=== PATIENT | male | born 1975 | race Caucasian/White ===

== ENCOUNTER 2021-05-04 18:58 | Emergency (ER) | payer MEDICAID ==
[2021-05-04 19:22] VITALS: BP 156/78; PULSE 97
[2021-05-04] MEDS ORDERED: Ketorolac 30 MG/ML SDV IM ONE (19:33)
[2021-05-04] MEDS ORDERED: Acetaminophen/HYDROcodone 325-10 MG Tab PO ONE (19:34)
[2021-05-04] MEDS ORDERED: Baclofen 10 MG Tab PO ONE (19:37)
--- NOTE | 2021-05-04 19:42 | EDM.PDOC ---
ED HPI GENERAL MEDICAL PROBLEM - General Chief Complaint: Lower Extremity Injury/Pain Stated Complaint: NECK AND BACK PAIN Time Seen by Provider: 05/04/21 19:37 Source of Information: Reports: Patient History Limitations: Reports: No Limitations - History of Present Illness INITIAL COMMENTS - FREE TEXT/NARRATIVE: pt arrived with increased pain in the lower back. He works at [employer] and he lifted something today which was too heavy and now he is having severe pain going down his legs. He did put in his notice today. 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 Onset: Today, Other ( occurred after lifting. ) Duration: Hour(s): Location: Reports: Back, Radiates to (both legs worse on the left. ) Associated Symptoms: Reports: Other (pt states he has pain every day but it is much worse today. ) Bilateral Lower Leg Pain Score (Numeric/FACES): 7 - Related Data Allergies Allergy/AdvReac Type Severity Reaction Status Date / Time No Known Allergies Allergy Verified 05/04/21 19:16 Home Meds: Home Meds ClonazePAM [KlonoPIN] 0.5 mg PO BID 05/04/21 [History] Mirtazapine [Remeron] 15 mg PO BID 05/04/21 [History] hydroCHLOROthiazide [Hydrochlorothiazide] 25 mg PO DAILY 05/04/21 [History] lisinopriL [Lisinopril] 20 mg PO DAILY 05/04/21 [History] Past Medical History Gastrointestinal History: Reports: Gastritis Genitourinary History: Reports: Other (See Below) Other Genitourinary History: Enlarged prostate Musculoskeletal History: Reports: Back Pain, Chronic, Other (See Below) Other Musculoskeletal History: hip pain Psychiatric History: Reports: Anxiety, Depression Dermatologic History: Reports: Psoriasis - Past Surgical History Musculoskeletal Surgical History: Reports: Other (See Below) Other Musculoskeletal Surgeries/Procedures:: Disc 6 and 7 2013 Social & Family History - Tobacco Use Tobacco Use Status *Q: Current Every Day Tobacco User Years of Tobacco use: 30 Packs/Tins Daily: 0.5 - Caffeine Use Caffeine Use: Reports: Coffee, Tea - Recreational Drug Use Recreational Drug Use: No Review of Systems - Review of Systems Review Of Systems: See Below Eyes: Reports: No Symptoms Ears: Reports: No Symptoms Nose: Reports: No Symptoms Mouth/Throat: Reports: No Symptoms Respiratory: Reports: No Symptoms Cardiovascular: Reports: No Symptoms Musculoskeletal: Reports: Other (pain radiating down both legs. ) ED EXAM, GENERAL - Physical Exam Exam: See Below Free Text/Narrative:: pt arrived with acute low back pain after lifting a heavy object today at work He now has pain going down both legs. Exam Limited By: No Limitations General Appearance: Alert, Anxious, Moderate Distress Ears: Normal TMs Respiratory/Chest: No Respiratory Distress Cardiovascular: Regular Rate, Rhythm GI/Abdominal: Soft, Non-Tender (Male) Exam: Deferred Back Exam: Other (pt is tender over the lower back. He very uncomfortable with straight leg raisinf,. He lives a few blocks from the [facility] and he will be walking home. ) Course - Vital Signs Last Recorded V/S: Last Vital Signs Temp 36.6 C 05/04/21 19:21 Pulse 97 05/04/21 19:21 Resp 18 05/04/21 19:21 BP 156/78 H 05/04/21 19:21 Pulse Ox 97 05/04/21 19:21 - Orders/Labs/Meds Meds: Medications Discontinued Medications Generic Name Dose Route Start Last Admin Trade Name Daq PRN Reason Stop Dose Admin Hydrocodone Bitart/Acetaminophen 1 tab 05/04/21 19:34 05/04/21 19:47 Acetaminophen/Hydrocodone 325-10 Mg Tab PO 05/04/21 19:35 1 tab ONETIME ONE Administration Baclofen 10 mg 05/04/21 19:37 05/04/21 19:47 Baclofen 10 Mg Tab PO 05/04/21 19:38 10 mg ONETIME ONE Administration Ketorolac Tromethamine 60 mg 05/04/21 19:33 05/04/21 19:46 Ketorolac 30 Mg/Ml Sdv IM 05/04/21 19:34 60 mg ONETIME ONE Administration - Re-Assessments/Exams Free Text/Narrative Re-Assessment/Exam: 05/04/21 19:43 pt was given torodol 60mg and norco 10/325 pluis bsclofen 10 mg. 05/04/21 20:11 pt did get some relief with the pain meds. Departure - Departure Time of Disposition: 20:12 Disposition: Home, Self-Care 01 Condition: Fair Clinical Impression: Lumbar disc disease - Discharge Information Referrals: Clinton Licea MD [Primary Care Provider] - Forms: ED Department Discharge Care Plan Goals: ice or heat to the low back, baclofen 10 ng bid for muscle spasm, [place] 5/325 q6h prn for pain #12. avoid lifting more than 8-10 lbs, Pt should not work for the next 2 days, Sepsis Event Note (ED) - Evaluation Sepsis Screening Result: No Definite Risk - Focused Exam Vital Signs: Vital Signs Temp Pulse Resp BP Pulse Ox 05/04/21 19:21 36.6 C 97 18 156/78 H 97
== END 2021-05-04 20:24 | disposition home or self-care (01) ==
LOC: JP.ED 18:58
DX: M51.9 Unspecified thoracic, thoracolumbar and lumbosacral intervertebral disc disorder (principal); Z79.899 Other long term (current) drug therapy; Z72.0 Tobacco use
CPT/HCPCS: 96372; 99283; A9270; J1885

== ENCOUNTER 2021-05-16 14:17 | Emergency (ER) | payer MEDICAID ==
[2021-05-16 14:21] VITALS: BP 127/77; PULSE 82
[2021-05-16] MEDS ORDERED: Ketorolac 30 MG/ML SDV IM ONE (14:26)
[2021-05-16] MEDS ORDERED: Acetaminophen/HYDROcodone 325-5 MG Tab PO ONE (14:27)
--- NOTE | 2021-05-16 14:52 | EDM.PDOC ---
ED HPI GENERAL MEDICAL PROBLEM - General Chief Complaint: Back Pain or Injury Stated Complaint: MEDICAL VIA NORTH Time Seen by Provider: 05/16/21 14:25 Source of Information: Denies: Patient History Limitations: Reports: Other (incomplete records) - History of Present Illness INITIAL COMMENTS - FREE TEXT/NARRATIVE: 45 yo male presents with increased chronic low back pain. Has pain down both legs, L>R. No bowel or bladder incontinence. Has known disc dz of his low back. His [place] primary care provider is referring him to a back specialist in the [facility]. He is in the early stages of divorce and recently had to quit his job at [employer] due to low back issues. Walked on the ice last night and while he did not fall, he thinks he slipped enough to aggravate his back problem. He took his last Dellroy at home today without relief. Here via EMS. Was started on Cymbalta this last week in the clinic for his pain. Onset: Gradual Onset Date: 05/15/21 (got worse again last night) Duration: Day(s): (<1 day), Getting Worse Location: Reports: Back Quality: Reports: Ache Severity: Severe Improves with: Reports: Rest Worsens with: Reports: Movement Context: Reports: Other (See HPI) Associated Symptoms: Reports: Other (pain down both legs) Treatments [employer]: Reports: Other (see below) (Dellroy x 1) Lower Lumbar Pain Score (Numeric/FACES): 8 - Related Data Allergies Allergy/AdvReac Type Severity Reaction Status Date / Time No Known Allergies Allergy Verified 05/04/21 19:16 Home Meds: Home Meds ClonazePAM [KlonoPIN] 0.5 mg PO BID 05/04/21 [History] hydroCHLOROthiazide [Hydrochlorothiazide] 25 mg PO DAILY 05/04/21 [History] lisinopriL [Lisinopril] 20 mg PO DAILY 05/04/21 [History] Acetaminophen/HYDROcodone [HYDROcodone-Acetaminophen 5-325 MG *] 1 - 2 tab PO Q6H PRN #12 each 05/16/21 [Rx] Acetaminophen/HYDROcodone [HYDROcodone-Acetaminophen 5-325 MG *] 1 tab PO Q6H PRN 05/16/21 [History] Past Medical History Gastrointestinal History: Reports: Gastritis Genitourinary History: Reports: Other (See Below) Other Genitourinary History: Enlarged prostate Musculoskeletal History: Reports: Back Pain, Chronic, Other (See Below) Other Musculoskeletal History: hip pain Psychiatric History: Reports: Anxiety, Depression Dermatologic History: Reports: Psoriasis - Past Surgical History Musculoskeletal Surgical History: Reports: Other (See Below) Other Musculoskeletal Surgeries/Procedures:: Disc 6 and 7 replaced 2013 Social & Family History - Tobacco Use Tobacco Use Status *Q: Never Tobacco User - Caffeine Use Caffeine Use: Reports: Coffee, Soda - Recreational Drug Use Recreational Drug Use: No ED ROS GENERAL - Review of Systems Review Of Systems: See Below Constitutional: Reports: No Symptoms HEENT: Reports: No Symptoms Respiratory: Reports: No Symptoms Cardiovascular: Reports: No Symptoms GI/Abdominal: Reports: No Symptoms Musculoskeletal: Reports: Back Pain Skin: Reports: No Symptoms Neurological: Reports: Other (radiation down legs, L>R) Psychiatric: Reports: Anxiety ED EXAM,LOWER BACK PAIN/INJURY - Physical Exam Exam: See Below Exam Limited By: No Limitations General Appearance: Alert, WD/WN, No Apparent Distress Eye Exam: Bilateral Eye: Normal Inspection Ears: Normal External Exam, Normal Canal, Hearing Grossly Normal Nose: Normal Inspection, No Blood Throat/Mouth: Normal Inspection, Normal Lips, Normal Oropharynx, Normal Voice, No Airway Compromise Head: Atraumatic, Normocephalic Neck: Normal Inspection Respiratory/Chest: No Respiratory Distress, Lungs Clear, Normal Breath Sounds, No Accessory Muscle Use Cardiovascular: Regular Rate, Rhythm GI/Abdominal: Normal Bowel Sounds, Soft, Non-Tender, No Distention. No: Distended Back Exam: Normal Inspection, Muscle Spasm (low lumbar). No: CVA Tenderness (R), CVA Tenderness (L) Extremities: Normal Inspection, Normal Range of Motion, Non-Tender, No Pedal Edema Neurological: Alert, Normal Mood/Affect, CN II-XII Intact, No Motor/Sensory Deficits, Oriented x 3, Other (reflexes hyporeflexive in both LE's) Psychiatric: Normal Affect, Normal Mood Skin Exam: Warm, Dry, Intact, Normal Color, No Rash Course - Vital Signs Last Recorded V/S: Last Vital Signs Temp 36.8 C 05/16/21 14:20 Pulse 82 05/16/21 14:20 Resp 16 05/16/21 14:20 BP 127/77 05/16/21 14:20 Pulse Ox 100 05/16/21 14:20 - Orders/Labs/Meds Meds: Medications Discontinued Medications Generic Name Dose Route Start Last Admin Trade Name Freq PRN Reason Stop Dose Admin Hydrocodone Bitart/Acetaminophen 2 tab 05/16/21 14:27 05/16/21 14:32 Acetaminophen/Hydrocodone 325-5 Mg Tab PO 05/16/21 14:28 2 tab ONETIME ONE Administration Diazepam 5 mg 05/16/21 14:53 Diazepam 5 Mg Tab PO 05/16/21 14:54 ONETIME ONE Ketorolac Tromethamine 30 mg 05/16/21 14:26 05/16/21 14:33 Ketorolac 30 Mg/Ml Sdv IM 05/16/21 14:27 30 mg ONETIME ONE Administration - Re-Assessments/Exams Free Text/Narrative Re-Assessment/Exam: 05/16/21 15:48 Got adequate, not complete relief of pain with our interventions. Departure - Departure Time of Disposition: 15:55 Disposition: Home, Self-Care 01 Condition: Fair Clinical Impression: Acute exacerbation of chronic low back pain - Discharge Information *PRESCRIPTION DRUG MONITORING PROGRAM REVIEWED*: No *COPY OF PRESCRIPTION DRUG MONITORING REPORT IN PATIENT GABRIEL: No Prescriptions: Acetaminophen/HYDROcodone [HYDROcodone-Acetaminophen 5-325 MG *] 1 - 2 tab PO Q6H PRN #12 each PRN Reason: Pain Referrals: PCP,Unknown [Primary Care Provider] - Forms: ED Department Discharge Additional Instructions: Continue your usual medications. Take ibuprofen 600 mg every 6 hrs with food and Dellroy OR acetaminophen for added relief. See your provider early this next week for recheck. Avoid lifting, bending or twisting. Sepsis Event Note (ED) - Evaluation Sepsis Screening Result: No Definite Risk - Focused Exam Vital Signs: Vital Signs Temp Pulse Resp BP Pulse Ox 05/16/21 14:20 36.8 C 82 16 127/77 100
[2021-05-16] MEDS ORDERED: Diazepam 5 MG Tab PO ONE (14:53)
== END 2021-05-16 16:02 | disposition home or self-care (01) ==
LOC: JP.ED 14:17
DX: M54.50 Low back pain, unspecified (principal); Z79.899 Other long term (current) drug therapy
CPT/HCPCS: 96372; 99283; A9270; J1885

== ENCOUNTER 2021-05-18 11:29 | Emergency (ER) | payer MEDICAID ==
[2021-05-18 11:42] VITALS: BP 127/77; PULSE 84
--- NOTE | 2021-05-18 12:07 | EDM.PDOC ---
ED HPI GENERAL MEDICAL PROBLEM - General Chief Complaint: Lower Extremity Injury/Pain Stated Complaint: PAIN IN R LEG,BUTT AND BACK Time Seen by Provider: 05/18/21 11:45 Source of Information: Reports: Patient History Limitations: Reports: No Limitations - History of Present Illness INITIAL COMMENTS - FREE TEXT/NARRATIVE: 45-year-old male with chronic spinal pain, low back pain and now developing some sciatic-like neuropathy type pain into the right buttock and right posterior thigh for the past several weeks. He had an x-ray at [facility] of the pelvis just a couple of days ago, he has been in the emergency room twice in the last 2 weeks and gotten some hydrocodone pain control. He had an appointment again at the clinic at 1:00, but came into the emergency room at noon instead. When he stands and bears weight he has increased pain in the right buttock, when he sits and is at rest it seems to be better. Denies any weakness of the leg, no incontinence or rash. He wants more x-rays to see if it is "his disc". Onset: Unknown/Unsure Duration: Chronic (Symptoms are chronic, waxing and waning) Location: Reports: Neck, Back, Lower Extremity, Left, Lower Extremity, Right Associated Symptoms: Denies: Confusion, Chest Pain, Fever/Chills, Malaise, Nausea/Vomiting, Shortness of Breath, Weakness Right Leg Pain Score (Numeric/FACES): 10 - Related Data Allergies Allergy/AdvReac Type Severity Reaction Status Date / Time No Known Allergies Allergy Verified 05/18/21 11:43 Home Meds: Home Meds ClonazePAM [KlonoPIN] 0.5 mg PO BID 05/04/21 [History] hydroCHLOROthiazide [Hydrochlorothiazide] 25 mg PO DAILY 05/04/21 [History] lisinopriL [Lisinopril] 20 mg PO DAILY 05/04/21 [History] Acetaminophen/HYDROcodone [HYDROcodone-Acetaminophen 5-325 MG *] 1 - 2 tab PO Q6H PRN #12 each 05/16/21 [Rx] Past Medical History Gastrointestinal History: Reports: Gastritis Genitourinary History: Reports: Other (See Below) Other Genitourinary History: Enlarged prostate Musculoskeletal History: Reports: Back Pain, Chronic, Other (See Below) Other Musculoskeletal History: hip pain Psychiatric History: Reports: Anxiety, Depression Dermatologic History: Reports: Psoriasis - Past Surgical History Musculoskeletal Surgical History: Reports: Other (See Below) Other Musculoskeletal Surgeries/Procedures:: Disc 6 and 7 replaced 2013 Social & Family History - Caffeine Use Caffeine Use: Reports: Coffee, Soda - Recreational Drug Use Recreational Drug Use: No Review of Systems - Review of Systems Review Of Systems: See Below Eyes: Reports: No Symptoms Respiratory: Reports: No Symptoms Cardiovascular: Reports: No Symptoms Musculoskeletal: Reports: Neck Pain, Back Pain, Leg Pain Skin: Reports: No Symptoms ED EXAM, GENERAL - Physical Exam Exam: See Below Exam Limited By: No Limitations General Appearance: Alert, No Apparent Distress Head: Atraumatic Neck: Normal Inspection, Non-Tender Respiratory/Chest: No Respiratory Distress, Lungs Clear Cardiovascular: Regular Rate, Rhythm Extremities: Other (Passive range of motion of the right lower extremity is normal, he does not have increased pain with flexion of the hip or with internal or external rotation of the hip. I cannot elicit palpation tenderness of the buttock or thigh.) Neurological: Alert, Oriented, No Motor/Sensory Deficits (Strength in the lower extremities is symmetric) Skin Exam: Warm, Dry Course - Vital Signs Last Recorded V/S: Last Vital Signs Temp 97.8 F 05/18/21 11:43 Pulse 84 05/18/21 11:43 Resp 16 05/18/21 11:43 BP 127/77 05/18/21 11:43 Pulse Ox 100 05/18/21 11:43 - Orders/Labs/Meds Meds: Medications Discontinued Medications Generic Name Dose Route Start Last Admin Trade Name Arpan PRN Reason Stop Dose Admin Ketorolac Tromethamine 30 mg 05/18/21 12:13 05/18/21 12:22 Ketorolac 30 Mg/Ml Sdv IM 05/18/21 12:14 30 mg ONETIME ONE Administration - Re-Assessments/Exams Free Text/Narrative Re-Assessment/Exam: 05/18/21 12:37 I explained to the patient that x-rays do not show the discs, he needs to follow the advice that he was given 2 days ago with his visit in the emergency room to follow-up with his primary provider to order an MRI. He was given 30 mg of IM Toradol, 10 additional doses of oral Toradol as well as a Medrol Dosepak but this is only symptomatic relief and medications for the inflammation, he needs to have the imaging to know what is causing the problem. He was upset that we did not put him on a "morphine drip or something stronger". Departure - Departure Time of Disposition: 12:08 Disposition: Home, Self-Care 01 Clinical Impression: Acute exacerbation of chronic low back pain, Right sided sciatica - Discharge Information Instructions: Sciatica Referrals: PCP,Unknown [Primary Care Provider] - Forms: ED Department Discharge Care Plan Goals: Take 1 dose of ketorolac every 6 hours until gone, and take Medrol Dosepak as prescribed. Call [place] and be checked as soon as possible to schedule an MRI of your lower back. Sepsis Event Note (ED) - Evaluation Sepsis Screening Result: No Definite Risk - Focused Exam Vital Signs: Vital Signs Temp Pulse Resp BP Pulse Ox 05/18/21 11:43 97.8 F 84 16 127/77 100 05/18/21 11:41 97.8 F 84 16 127/77 100
[2021-05-18] MEDS ORDERED: Ketorolac 30 MG/ML SDV IM ONE (12:13)
== END 2021-05-18 12:25 | disposition home or self-care (01) ==
LOC: JP.ED 11:29
DX: M54.41 Lumbago with sciatica, right side (principal); G89.29 Other chronic pain; Z79.899 Other long term (current) drug therapy
CPT/HCPCS: 96372; 99283; J1885

== ENCOUNTER 2021-05-21 11:05 | Emergency (ER) | payer MEDICAID ==
[2021-05-21 11:18] VITALS: BP 153/99; PULSE 84
--- NOTE | 2021-05-21 12:18 | EDM.PDOC ---
ED HPI GENERAL MEDICAL PROBLEM - General Chief Complaint: Back Pain or Injury Stated Complaint: MEDICAL VIA NORTH Time Seen by Provider: 05/21/21 12:16 Source of Information: Reports: Patient History Limitations: Reports: No Limitations - History of Present Illness INITIAL COMMENTS - FREE TEXT/NARRATIVE: pt is having severe pain in the lower back and he has pain with spasm going down the rt leg. He had a MRI which does reveal a large extruded disc at l5-s1. This is encroaching on the anterior thecal sac. Onset: Gradual, Other (pt had a MRI today which showed a large extruded disc at l5 s1. This is causing neural pressure. He has been very uncomfortable. ) Duration: Hour(s): Location: Reports: Back, Lower Extremity, Right Associated Symptoms: Reports: No Other Symptoms Back Pain Score (Numeric/FACES): 10 - Related Data Allergies Allergy/AdvReac Type Severity Reaction Status Date / Time No Known Allergies Allergy Verified 05/21/21 11:34 Home Meds: Home Meds ClonazePAM [KlonoPIN] 0.5 mg PO BID 05/04/21 [History] hydroCHLOROthiazide [Hydrochlorothiazide] 25 mg PO DAILY 05/04/21 [History] lisinopriL [Lisinopril] 20 mg PO DAILY 05/04/21 [History] Acetaminophen/HYDROcodone [HYDROcodone-Acetaminophen 5-325 MG *] 1 - 2 tab PO Q6H PRN #12 each 05/16/21 [Rx] Past Medical History Gastrointestinal History: Reports: Gastritis Genitourinary History: Reports: Other (See Below) Other Genitourinary History: Enlarged prostate Musculoskeletal History: Reports: Back Pain, Chronic, Other (See Below) Other Musculoskeletal History: hip pain Psychiatric History: Reports: Anxiety, Depression Dermatologic History: Reports: Psoriasis - Past Surgical History Musculoskeletal Surgical History: Reports: Other (See Below) Other Musculoskeletal Surgeries/Procedures:: Disc 6 and 7 replaced 2013 Social & Family History - Tobacco Use Tobacco Use Status *Q: Never Tobacco User - Caffeine Use Caffeine Use: Reports: Coffee - Recreational Drug Use Recreational Drug Use: No ED ROS GENERAL - Review of Systems Review Of Systems: See Below Constitutional: Reports: No Symptoms HEENT: Reports: No Symptoms Respiratory: Reports: No Symptoms Cardiovascular: Reports: No Symptoms Endocrine: Reports: No Symptoms GI/Abdominal: Reports: No Symptoms : Reports: No Symptoms Musculoskeletal: Reports: Back Pain, Other (pain radiating down the rt leg. ) Neurological: Reports: Difficulty Walking ED EXAM,LOWER BACK PAIN/INJURY - Physical Exam Exam: See Below Text/Narrative:: pt is having severe lower back pain Exam Limited By: No Limitations General Appearance: Alert, Anxious Ears: Normal TMs Nose: Normal Inspection Throat/Mouth: Normal Inspection Head: Atraumatic Neck: Normal Inspection Respiratory/Chest: No Respiratory Distress Cardiovascular: Regular Rate, Rhythm Back Exam: Other ( tendr over the lower back, positive straight leg raising on the rt. ) Extremities: Normal Inspection Course - Vital Signs Last Recorded V/S: Last Vital Signs Temp 36.6 C 05/21/21 11:32 Pulse 84 05/21/21 11:32 Resp 16 05/21/21 11:32 BP 153/99 H 05/21/21 11:32 Pulse Ox 100 05/21/21 11:32 - Orders/Labs/Meds Meds: Medications Discontinued Medications Generic Name Dose Route Start Last Admin Trade Name Arpan PRN Reason Stop Dose Admin Hydromorphone HCl 1 mg 05/21/21 12:11 05/21/21 12:57 Hydromorphone 1 Mg/Ml Syringe IM 05/21/21 12:12 1 mg ONETIME ONE Administration Ketorolac Tromethamine 30 mg 05/21/21 12:12 05/21/21 12:57 Ketorolac 30 Mg/Ml Sdv IM 05/21/21 12:13 30 mg ONETIME ONE Administration Oxycodone/Acetaminophen 1 tab 05/21/21 15:35 Acetaminophen/Oxycodone 325-10 Mg Tab PO 05/21/21 15:36 ONETIME ONE - Re-Assessments/Exams Free Text/Narrative Re-Assessment/Exam: 05/21/21 15:46 Pt was given torodol 60 mg im and dilaudid 1 mg im. He was able to get much more comfortable. He will have surgery next [facility] in [place]. Departure - Departure Time of Disposition: 15:36 Disposition: Home, Self-Care 01 Condition: Fair Clinical Impression: Herniation of intervertebral disc between L4 and L5 - Discharge Information Referrals: PCP,None [Primary Care Provider] - Forms: ED Department Discharge Care Plan Goals: low activity, crutches, percocet 325-10 1 tab q6h prn for pain, If the pain get unbearable go to [place] where his surgeon is and see him. Pt has scheduled surgery next thur. # 25 Sepsis Event Note (ED) - Evaluation Sepsis Screening Result: No Definite Risk - Focused Exam Vital Signs: Vital Signs Temp Pulse Resp BP Pulse Ox 05/21/21 11:32 36.6 C 84 16 153/99 H 100 05/21/21 11:16 36.6 C 84 16 153/99 H 100
[2021-05-21] MEDS: Ketorolac 30 MG/ML SDV IM ONE (12:57)
[2021-05-21] MEDS: HYDROmorphone 1 MG/ML Syringe IM ONE (12:57)
[2021-05-21] MEDS: Acetaminophen/oxyCODONE 325-10 MG Tab PO ONE (16:05)
== END 2021-05-21 16:13 | disposition home or self-care (01) ==
LOC: JP.ED 11:05
DX: M51.26 Other intervertebral disc displacement, lumbar region (principal); Z79.899 Other long term (current) drug therapy
CPT/HCPCS: 96372; 99283; A9270-GY; J1170; J1885

== ENCOUNTER 2021-05-23 16:38 | Emergency (ER) | payer MEDICAID ==
[2021-05-23 17:17] VITALS: BP 137/89; PULSE 113
--- NOTE | 2021-05-23 17:35 | EDM.PDOC ---
ED HPI GENERAL MEDICAL PROBLEM - General Chief Complaint: General Stated Complaint: DIZZY,WEAK Time Seen by Provider: 05/23/21 17:20 Source of Information: Reports: Patient History Limitations: Reports: No Limitations - History of Present Illness INITIAL COMMENTS - FREE TEXT/NARRATIVE: 45-year-old male who is under a lot of stress, and struggling with a herniated disc in his back presents with feeling "out of it", slightly shaky, tired with general malaise. He has been taking oxycodone for his back pain for the last 2 days but insists that is "not it". No nausea or vomiting, no diarrhea, no fevers or chills, no shortness of breath. He is having intermittent chest pain and his family has a strong history of cardiac disease and he is concerned that he is having a heart attack. He does admit that he has a long history of anxiety with a history of panic attacks as well. Onset: Gradual Duration: Day(s): (Symptoms have been waxing and waning for 2 days), Waxing/Waning Location: Reports: Chest (Localized chest pressure), Generalized Associated Symptoms: Reports: Chest Pain, Diaphoresis (Hands got clammy several times today), Loss of Appetite, Malaise, Weakness. Denies: Confusion, Cough, Shortness of Breath - Related Data Allergies Allergy/AdvReac Type Severity Reaction Status Date / Time No Known Allergies Allergy Verified 05/21/21 11:34 Home Meds: Home Meds ClonazePAM [KlonoPIN] 0.5 mg PO BID 05/04/21 [History] hydroCHLOROthiazide [Hydrochlorothiazide] 25 mg PO DAILY 05/04/21 [History] lisinopriL [Lisinopril] 20 mg PO DAILY 05/04/21 [History] Acetaminophen/HYDROcodone [HYDROcodone-Acetaminophen 5-325 MG *] 1 - 2 tab PO Q6H PRN #12 each 05/16/21 [Rx] Past Medical History Gastrointestinal History: Reports: Gastritis Genitourinary History: Reports: Other (See Below) Other Genitourinary History: Enlarged prostate Musculoskeletal History: Reports: Back Pain, Chronic, Other (See Below) Other Musculoskeletal History: hip pain Psychiatric History: Reports: Anxiety, Depression Dermatologic History: Reports: Psoriasis - Infectious Disease History Infectious Disease History: Reports: Chicken Pox - Past Surgical History Musculoskeletal Surgical History: Reports: Other (See Below) Other Musculoskeletal Surgeries/Procedures:: Disc 6 and 7 replaced 2013 Social & Family History - Tobacco Use Tobacco Use Status *Q: Current Every Day Tobacco User Years of Tobacco use: 20 Packs/Tins Daily: 20 - Caffeine Use Caffeine Use: Reports: Coffee - Recreational Drug Use Recreational Drug Use: No ED ROS GENERAL - Review of Systems Review Of Systems: See Below Constitutional: Reports: Malaise, Decreased Appetite. Denies: Fever, Chills HEENT: Denies: Vision Change Respiratory: Denies: Shortness of Breath Cardiovascular: Reports: Chest Pain. Denies: Palpitations Endocrine: Reports: Fatigue GI/Abdominal: Denies: Abdominal Pain, Constipation, Diarrhea, Vomiting : Reports: No Symptoms Musculoskeletal: Reports: Other (Patient has chronic back and neck pain) Skin: Reports: Pallor, Diaphoresis Neurological: Reports: Paresthesia (Intermittent numbness and paresthesias of the right lower extremity, this has switched to the left extremity over the past day) Psychiatric: Reports: Anxiety. Denies: Depression, Homicidal Ideation, Suicidal Ideation ED EXAM, GENERAL - Physical Exam Exam: See Below Exam Limited By: No Limitations General Appearance: Alert, No Apparent Distress, Anxious Eye Exam: Bilateral Eye: Normal Inspection Head: Atraumatic Neck: Normal Inspection, Supple, Non-Tender Respiratory/Chest: No Respiratory Distress, Lungs Clear Cardiovascular: Regular Rate, Rhythm, No Murmur, Tachycardia (Mild tachycardia). No: Extra Beats GI/Abdominal: Soft, Non-Tender Extremities: Normal Inspection, Other (He does not have straight leg raising symptoms today) Neurological: Alert, Oriented, No Motor/Sensory Deficits Psychiatric: Anxious Skin Exam: Warm, Dry #1 Interpretation EKG Date: 05/23/21 Time: 17:30 Rhythm: NSR QRS: Normal ST-T: Normal Course - Vital Signs Last Recorded V/S: Last Vital Signs Temp 98.0 F 05/23/21 16:57 Pulse 113 H 05/23/21 16:57 Resp 16 05/23/21 16:57 BP 137/89 05/23/21 16:57 Pulse Ox 98 05/23/21 16:57 - Orders/Labs/Meds Orders: Active Orders 24 hr Category Date Time Status EKG 12 Lead [EK] Routine Ther 05/23/21 17:19 Ordered Labs: Laboratory Tests 05/23/21 05/23/21 Range/Units 17:31 17:31 WBC 8.3 (4.5-11.0) K/uL RBC 4.92 (4.30-5.90) M/uL Hgb 15.2 H (12.0-15.0) g/dL Hct 45.4 (40.0-54.0) % MCV 92 (80-98) fL MCH 31 (27-31) pg MCHC 34 (32-36) % Plt Count 197 (150-400) K/uL Neut % (Auto) 80.0 H (36-66) % Lymph % (Auto) 12.8 L (24-44) % Chase % (Auto) 6.7 H (2-6) % Eos % (Auto) 0.4 L (2-4) % Baso % (Auto) 0.1 (0-1) % Sodium 135 L (140-148) mmol/L Potassium 3.6 (3.6-5.2) mmol/L Chloride 95 L (100-108) mmol/L Carbon Dioxide 31 (21-32) mmol/L Anion Gap 12.6 (5.0-14.0) mmol/L BUN 10 (7-18) mg/dL Creatinine 1.1 (0.8-1.3) mg/dL Est Cr Clr Drug Dosing 62.07 mL/min Estimated GFR (MDRD) > 60 (>60) Glucose 92 (74-106) mg/dL Calcium 9.3 (8.5-10.1) mg/dL Troponin I High Sens 5.0 (<=60.3) pg/mL - Re-Assessments/Exams Free Text/Narrative Re-Assessment/Exam: 05/23/21 17:34 EKG was normal, BMP, CBC and troponin were drawn for reassurance. This is almost certainly related to medication side effect and anxiety. 05/24/21 07:25 All labs were reassuring as well, including a negative troponin. Patient will continue medications as prescribed and activity as tolerated. Follow-up as scheduled. Departure - Departure Time of Disposition: 18:20 Disposition: Home, Self-Care 01 Clinical Impression: Near syncope, Malaise - Discharge Information Instructions: Weakness Referrals: Clinton Licea MD [Primary Care Provider] - Forms: ED Department Discharge Care Plan Goals: Continue any current medications but use oxycodone sparingly. Stay hydrated and increase activity as tolerated. Return if worsening or concerns. Sepsis Event Note (ED) - Evaluation Sepsis Screening Result: No Definite Risk - My Orders Last 24 Hours: My Active Orders 05/23/21 17:19 EKG 12 Lead [EK] Routine - Assessment/Plan Last 24 Hours: My Active Orders 05/23/21 17:19 EKG 12 Lead [EK] Routine
== END 2021-05-23 18:20 | disposition home or self-care (01) ==
LOC: JP.ED 16:38
DX: R53.81 Other malaise (principal); R55 Syncope and collapse; R07.89 Other chest pain; Z72.0 Tobacco use
CPT/HCPCS: 36415; 80048; 84484; 85025; 93005; 99284-25

== ENCOUNTER 2021-06-08 16:34 | Emergency (ER) | payer MEDICAID ==
[2021-06-08 17:14] VITALS: BP 147/88; PULSE 94
--- NOTE | 2021-06-08 17:33 | EDM.PDOC ---
<OfficerChivo - Last Filed: 06/08/21 17:31> ED HPI GENERAL MEDICAL PROBLEM - General Chief Complaint: Lower Extremity Injury/Pain Stated Complaint: POST SURGERY LEGS SWOLLEN Time Seen by Provider: 06/08/21 17:27 Source of Information: Reports: Patient, Family, RN Notes Reviewed History Limitations: Reports: No Limitations - History of Present Illness INITIAL COMMENTS - FREE TEXT/NARRATIVE: 45-year-old gentleman presents to the emergency department day complaint of right leg swelling and pain, he is postop from my microdisc ectomy about a week he states over the last couple days he has noticed increased pain and swelling in his right leg. He is concerned about the possibility of a blood clot - Related Data Allergies Allergy/AdvReac Type Severity Reaction Status Date / Time No Known Allergies Allergy Verified 06/08/21 17:16 Home Meds: Home Meds ClonazePAM [KlonoPIN] 0.5 mg PO BID 05/04/21 [History] hydroCHLOROthiazide [Hydrochlorothiazide] 25 mg PO DAILY 05/04/21 [History] lisinopriL [Lisinopril] 20 mg PO DAILY 05/04/21 [History] Acetaminophen/HYDROcodone [HYDROcodone-Acetaminophen 5-325 MG *] 1 - 2 tab PO Q6H PRN #12 each 05/16/21 [Rx] DULoxetine [Cymbalta] 30 mg PO DAILY 06/08/21 [History] Mirtazapine 15 mg PO BID 06/08/21 [History] Past Medical History Cardiovascular History: Reports: Hypertension Gastrointestinal History: Reports: Gastritis, GERD Genitourinary History: Reports: Other (See Below) Other Genitourinary History: Enlarged prostate Musculoskeletal History: Reports: Back Pain, Chronic, Other (See Below) Other Musculoskeletal History: hip pain Neurological History: Reports: Headaches, Chronic, Other (See Below) Other Neuro History: fibromyalgia Psychiatric History: Reports: Anxiety, Depression Dermatologic History: Reports: Psoriasis - Infectious Disease History Infectious Disease History: Reports: Chicken Pox - Past Surgical History Musculoskeletal Surgical History: Reports: Other (See Below) Other Musculoskeletal Surgeries/Procedures:: Disc 6 and 7 2013 Social & Family History - Tobacco Use Tobacco Use Status *Q: Never Tobacco User - Caffeine Use Caffeine Use: Reports: Coffee Review of Systems - Review of Systems Review Of Systems: See Below Constitutional: Reports: No Symptoms Respiratory: Reports: No Symptoms Cardiovascular: Reports: No Symptoms Musculoskeletal: Reports: Leg Pain Skin: Reports: No Symptoms ED EXAM, GENERAL - Physical Exam Exam: See Below Free Text/Narrative:: Examination the right leg I do appreciate and increased in edema in the right leg compared to the left it is not markedly swollen but it is more taut than the left leg there is no pain to palpation no difficulty with ambulation pedal pulses +2 Departure - Departure Disposition: Home, Self-Care 01 Clinical Impression: Edema of right lower leg - Discharge Information Instructions: Peripheral Edema Referrals: Clinton Licea MD [Primary Care Provider] - Forms: ED Department Discharge Care Plan Goals: Continue current medications and increase activity as tolerated under the guidance of your surgeon. Return if concerns such as fever, increased pain or shortness of breath. Sepsis Event Note (ED) - Evaluation Sepsis Screening Result: No Definite Risk <Miki Norris - Last Filed: 06/08/21 20:00> Course - Vital Signs Last Recorded V/S: Last Vital Signs Temp 98.1 F 06/08/21 17:23 Pulse 94 06/08/21 17:23 Resp 16 06/08/21 17:23 BP 147/88 H 06/08/21 17:23 Pulse Ox 98 06/08/21 17:23 - Orders/Labs/Meds Orders: Active Orders 24 hr Category Date Time Status VL Duplex Lwr Ext Veins Ltd Rt [US] Stat Exams 06/08/21 17:30 Taken - Re-Assessments/Exams Free Text/Narrative Re-Assessment/Exam: 06/08/21 18:55 Care turned over from Officer pending a right lower extremity ultrasound for DVT. It is negative, patient was reassured and will continue his current treatment regimen. Departure - Departure Time of Disposition: 19:03 Sepsis Event Note (ED) - Focused Exam Vital Signs: Vital Signs Temp Pulse Resp BP Pulse Ox 06/08/21 17:23 98.1 F 94 16 147/88 H 98 06/08/21 17:10 98.1 F 94 16 147/88 H 98
--- NOTE | 2021-06-09 09:17 | US ---
VL Duplex Lwr Ext Veins Ltd Rt INDICATION: post op leg pain swelling FINDINGS: Ultrasound examination of the right lower extremity using Doppler and compressive technique demonstrates that the common femoral, femoral, and popliteal veins are patent, and negative for thrombus. The calf veins were segmentally visualized and are negative where seen. IMPRESSION: Negative for deep venous thrombosis.
== END 2021-06-08 19:03 | disposition home or self-care (01) ==
LOC: JP.ED 16:34
DX: R60.0 Localized edema (principal); I10 Essential (primary) hypertension; K21.9 Gastro-esophageal reflux disease without esophagitis; Z79.899 Other long term (current) drug therapy
CPT/HCPCS: 93971-26; 93971-RT; 99283-25

== ENCOUNTER 2021-08-30 16:21 | Emergency (ER) | payer MEDICAID ==
[2021-08-30 16:36] VITALS: BP 157/90; PULSE 111
== END 2021-08-30 17:35 | disposition home or self-care (01) ==
LOC: JP.ED 16:21
DX: S70.11XA Contusion of right thigh, initial encounter (principal); I10 Essential (primary) hypertension; K21.9 Gastro-esophageal reflux disease without esophagitis; Z79.899 Other long term (current) drug therapy; W00.9XXA Unspecified fall due to ice and snow, initial encounter
CPT/HCPCS: 36415; 85027; 93010; 99282; 99283

== ENCOUNTER 2022-07-25 10:52 | Emergency (ER) | payer MEDICAID ==
[2022-07-25 11:02] VITALS: BP 138/83; PULSE 104
[2022-07-25] MEDS ORDERED: Ketorolac 30 MG/ML SDV IM ONE (11:12)
== END 2022-07-25 11:50 | disposition home or self-care (01) ==
LOC: JP.ED 10:52
DX: F41.1 Generalized anxiety disorder (principal); I10 Essential (primary) hypertension; F17.220 Nicotine dependence, chewing tobacco, uncomplicated; Z79.899 Other long term (current) drug therapy
CPT/HCPCS: 71045; 96372; 99284; J1885